=== PATIENT | male | born 1965 | race Caucasian/White ===

== ENCOUNTER 2018-02-08 22:06 | Emergency (ER) | payer BC ==
[2018-02-08 22:28] LABS: BASOPHILS 0.4 % (0-2); EOSINOPHILS 5.7 % (0-7); HEMATOCRIT 48.1 % (42.0-54.0); HEMOGLOBIN 16.7 g/dL (13.5-17.5); IMMATURE GRANULOCYTES 0.1 % (0-5); LYMPHOCYTES 24.3 % (15-50); MCH 31.6 pg (26.0-34.0); MCHC 34.7 g/dL (31.0-37.0); MCV 91.1 fL (80.0-100.0); MONOCYTES 7.7 % (2-11); NEUTROPHILS 61.8 % (40-80); PLATELET COUNT 179 10x3/uL (130-400); RBC 5.28 10x6/uL (4.20-6.10); RDW 12.7 % (11.5-14.5); WBC 7.4 10x3/uL (4.8-10.8)
[2018-02-08 22:40] LABS: ALBUMIN 3.9 g/dL (3.4-5.0); ALKALINE PHOSPHATASE 94 U/L (46-116); ALT (SGPT) 38 U/L (10-68); BILIRUBIN - TOTAL 0.98 mg/dL (0.2-1.3); CALC OSMOLALITY 278 mosm/kg (275-300); CARBON DIOXIDE 28.7 mmol/L (21.0-32.0); CHLORIDE - SERUM 104 mmol/L (98-107); GLUCOSE 88 mg/dL (74-106); MAGNESIUM - SERUM 2.2 mg/dL (1.8-2.4); POTASSIUM - SERUM 4.3 mmol/L (3.5-5.1); PROTEIN - SERUM 7.3 g/dL (6.4-8.2); SODIUM 139 mmol/L (136-145); UREA NITROGEN 18 mg/dL (7-18); eGFR NON AFRICAN AMERICAN 83 mL/min (90-120)
== END 2018-02-08 23:16 | disposition home or self-care (01) ==
LOC: D.ER 22:06
PROVIDERS: Emergency Medicine
DX: R55 Syncope and collapse (principal); S00.03XA Contusion of scalp, initial encounter; W19.XXXA Unspecified fall, initial encounter; Y93.89 Activity, other specified; Y92.89 Other specified places as the place of occurrence of the external cause